=== PATIENT | male | born 1985 | race Caucasian/White ===

== ENCOUNTER 2019-04-26 12:57 | Observation (INO) ==
[2019-04-26] MEDS ORDERED: NITROGLYCERIN TOP ONE (13:24)
[2019-04-26 13:50] LABS: BASO# 0.02 X1000 (0.0-0.2); BASO% 0.2 % (0.0-0.8); EOS% 0.9 % (0.0-10.0); HEMATOCRIT 46.8 % (42.0-52.0); HEMOGLOBIN 16.6 g/dL (14.0-18.0); IMM GRAN# 0.03 X1000 (0.0-0.04); IMM GRAN% 0.3 % (0.0-0.5); LYMPH# 2.43 X1000 (1.2-3.4); LYMPH% 22.7 % (20.5-51.1); MCH 29.1 PG (27-31); MCHC 35.5 g/dL (33-37); MCV 82.1 FL (81-99); MONO% 5.6 % (1.7-9.3); MPV 9.5 FL (7.4-10.4); NEUT# 7.54 X1000 (1.4-6.5); NEUT% 70.3 % (42.2-75.2); PLT 282 X1000 (130-400); RDW 12.6 % (11.5-14.5); WBC 10.72 X1000 (4.8-10.8)
[2019-04-26 13:56] LABS: INR 1.02; PROTIME 13.5 Seconds (11.0-16.0)
[2019-04-26 13:57] LABS: PTT 30.7 Seconds (22.3-41.8)
[2019-04-26 14:13] LABS: AGAP 15; ALB/GLOB RATIO 2.3; ALBUMIN 4.5 g/dL (3.5-5.0); ALKALINE PHOSPHATASE 93 U/L (32-122); BUN 10 mg/dL (8-22); CALCIUM 9.1 mg/dL (8.8-10.2); CHLORIDE 100 mmol/L (98-107); CK PROFILE 80 U/L (24-204); COSMO 273; CREATININE 0.6 mg/dL (0.7-1.2); ESTIMATED GFR > 60; GLUCOSE 95 mg/dL (70-104); GOT 18 U/L (10-34); GPT 38 U/L (10-44); POTASSIUM 4.2 mmol/L (3.5-5.1); SODIUM 137 mmol/L (136-145); TCO2 22 mmol/L (25-35); TOTAL BILIRUBIN 0.31 mg/dL (0.20-1.00); TOTAL PROTEIN 6.5 g/dL (6.3-8.3)
--- NOTE | 2019-04-26 14:16 | Diag Imaging Result Doc PS360 ---
EXAM: CHEST-2 VIEWS INDICATION: chest pain TECHNIQUE: 2 views COMPARISON: None. FINDINGS: The lungs are grossly clear. There is no discrete pleural fluid collection or pneumothorax. The cardiomediastinal silhouette and central vasculature are grossly unremarkable. IMPRESSION: No evidence of acute pathology by plain radiograph. Electronically signed by Daniel Pulido 04/26/2019 2:02 PM
--- NOTE | 2019-04-26 15:27 | EKG Report ---
Test Performed on : 04/26/2019 1:01:26 PM Test Reason : ED. No order in [place] Blood Pressure : / mmHG Vent. Rate : 073 BPM Atrial Rate : 073 BPM P-R Int : 104 ms QRS Dur : 094 ms QT Int : 382 ms P-R-T Axes : 004 -09 087 degrees QTc Int : 420 ms Sinus rhythm. with short OR T wave abnormality, consider anterolateral ischemia Abnormal ECG No previous ECGs available Unconfirmed Result
[2019-04-26 16:59] LABS: FREE T4 1.1 ng/dL (0.93-1.70); TSH 0.37 uIUmL (0.27-4.20)
--- NOTE | 2019-04-26 17:01 | HISTORY AND PHYSICAL ---
HISTORY OF PRESENT ILLNESS: This is a 33-year-old. He actually works at [employer], but want to come here to the hospital. He said that it has been going on for a week and just off and on. It will start off with tingly pain on the left side, kind of go up into his shoulder and then he will feel this pressure and then he will hurt everywhere. He will hurt when he closes his eyes. He will hurt when he stands up. He just gets this all-over pain and nothing will relieve it. It is not related to exertion. He has no true radiation into his jaw. He does describe some paresthesias running down his left arm into his fingertips. No fever or chills. No pleuritic pain. He does admit that he has gone through a lot of stress. He is going through a divorce right now and he is very concerned about it. He has a history of anxiety and a history of panic attacks. He states, "I know what my panic attacks feel like and this is not a panic attack." The EKG is unremarkable except for nonspecific T-wave inversion in the lateral leads. He has really no history of coronary artery disease or heart disease. As I mentioned, he does have a history of anxiety and he is on medications. He is followed by primary care in [place]. ALLERGIES: Amoxicillin, tetracycline. REVIEW OF SYSTEMS: He does not report any change in his weight or true fever, chills. No report of change in vision or hearing acuity or neurologic focal deficits. Musculoskeletal: No complaints. GI and : Really no complaints. Endocrinologic and Hematologic: No significant history. PHYSICAL EXAMINATION: VITAL SIGNS: Temperature 97.7 degrees, pulse 65, respirations 14, blood pressure 110/74. EYES: Pupils are equal and round. LUNGS: Clear in all lung liang. CARDIOVASCULAR: Regular in rate without murmur or S3. ABDOMEN: Soft. SKIN: Warm and dry. WEIGHT: 150 pounds. LABORATORY DATA: White count 10,720, hematocrit 46, platelet count 282,000. Sodium 137, potassium 4.2, chloride 100, BUN 10, creatinine 0.6, glucose 95, calcium 9.1, albumin 4.5. PT is 13.5, PTT is 30. Chest x-ray, no evidence of acute pathology. ASSESSMENT AND PLAN: Very atypical chest pain. I think it is consistent with his anxiety. He is very frightened of something different. He is taking Adderall p.r.n. and he takes Vyvanse. I do not know if he is taking both of them together, but he has to amphetamines that he is taking. His family is concerned about him and would like him to get on Xanax. I do think it is reasonable for him to try some Ativan while he is here. I will give him 1 mg of Ativan p.o. q.4 hours p.r.n.. We will hold his Adderall and his Vyvanse as these can contribute to anxiety as well. We are going to check his T4, TSH, B12 and folate. We are going to check serial cardiac enzymes and EKG. We will put him on a regular diet. All of his labs reviewed. I do not see anything I am concerned about. I see no evidence of left ventricular dysfunction or valvular dysfunction, but I did explain to him until he is convinced it is not his heart, it is going to cause his anxiety to intensify. He was very uncomfortable with the thought of going home and so was his family. So, we will admit him, ask Cardiology to help with reinforcing his workup. cc: Tiburcio Riggs MD
[2019-04-26] MEDS ORDERED: ATIVAN PO PRN (17:14)
[2019-04-26] MEDS ORDERED: TYLENOL PO PRN (17:14)
[2019-04-26] MEDS ORDERED: NITROGLYCERIN SL PRN (17:14)
[2019-04-26] MEDS ORDERED: ZOFRAN IV PRN (17:14)
--- NOTE | 2019-04-26 18:24 | PROVIDER DOCUMENTATION ---
This chart was entered by Nancy Rose Scribe, acting as scribe for Jermaine Naranjo MD. HPI-Chest Pain - General Chief Complaint: Chest Pain Stated Complaint: cp Time Seen by Provider: 04/26/19 13:01 Source: patient, family (aunt and grandmother), EMS Allergies/Adverse Reactions: Patient Allergies Allergy/AdvReac Type Severity Reaction Status Date / Time amoxicillin AdvReac HIVES Verified 04/26/19 13:18 Tetracyclines AdvReac HIVES Verified 04/26/19 13:18 Home Medications: Home Medication List Medication Instructions Recorded Confirmed Last Taken Type Amphetamine Salts [Adderall] 20 mg PO PRN PRN 04/26/19 04/26/19 Unknown History Lisdexamfetamine Dimesylate 70 mg PO QAM 04/26/19 04/26/19 Unknown History [Vyvanse] - History of Present Illness-CP Nature of Presenting Problem: 33 yowm presents to the ed with c/o intermittent chest pain radiating into left arm for 2 weeks. pt sts he has been under much stress going through a custody murphy and divorce. pt sts [facility] called [facility] they bring him to [facility] er because pt is a [facility] and did not want them to see him on the stretcher. pt on exam is anxious and aunt and grandmother came in and au nt is stating "yall have to admit him because something is wrong, I would rather him be admitted then go home" pt on exam sts "all the pain is gone but this is what it does and it will come back" pt partner on the ambulance brought the pt to the er and the medic sts "en route the monitor showed rt ventricular conduction delay and once the pain returned it showed CO" after exam when dr naranjo was back at his desk the aunt came rushing to the dr and sts "come back he is in much distress" the nurse went to bedside and pt was having anxiety Location: reports: other (left anterior) Chest Pain Radiation: reports: arms (left arm) Quality of Pain: reports: pressure Severity in ED: moderate Onset/Duration: other (2 weeks) Timing: intermittent Context/Activities at Onset: reports: light activity Modifying Factors: improves with: nothing Associated Symptoms: denies: abdominal pain, back pain, nausea, shortness of breath, vomiting Nitro Today/Relief: no nitro taken today Aspirin Treatment Today: 325 mg x 1, provided by EMS Prior Chest Pain/Cardiac Workup: reports: no prior chest pain Similar Symptoms Previously?: No Recently Seen Here or By Another Healthcare Provider: No Review of Systems - Adult - REVIEW OF SYSTEMS - ADULT Constitutional: denies: chills, fever Eyes: reports: no symptoms reported Ears, Nose, Mouth & Throat: reports: no symptoms reported Cardiovascular: reports: see HPI, chest pain. denies: palpitations, syncope Respiratory: denies: shortness of breath, wheezing Gastrointestinal: denies: abdominal pain, diarrhea, nausea, vomiting Genitourinary: reports: no symptoms reported Musculoskeletal: reports: see HPI, other (left arm) Integumentary: reports: no symptoms reported Psychiatric: reports: see HPI, anxiety, panic attacks Endocrine: reports: no symptoms reported Hematologic/Lymphatic: reports: no symptoms reported Allergic/Immunologic: reports: no symptoms reported All Other Systems: Reviewed and Negative Past History - Adult - PAST MEDICAL HISTORY-ADULT Review of Records: reports: Old Records Reviewed, Nursing Assessment Review, Medications Reviewed, Social history reviewed & non-contributory. Major Childhood Illnesses: reports: denies history Cardiovascular: reports: hyperlipidemia Respiratory: reports: denies history Gastrointestinal: reports: GERD, pancreatitis Genitourinary: reports: denies history Musculoskeletal: reports: denies history Neurological: reports: denies history Psychiatric: reports: anxiety, other (panic attacks) Endocrine/Immune: reports: denies history Other Conditions: reports: denies history - PRIOR SURGERIES/PROCEDURES Surgical/Procedure History: reports: reviewed, not pertinent - IMMUNIZATION STATUS Childhood Immunizations: See Nurse Assessment Flu Vaccine: See Nurse Assessment - FAMILY HISTORY Family History: reviewed, not pertinent - SOCIAL HISTORY Smoking: cigarettes, less than 1 pack/day Provider spent 3-5 mins advising pt. on dangers of tobacco.: Discussed manners to quit use, and f/u contacts for add'l counseling. Substance Use: denies Alcohol Use Frequency: never Living Situation: family Physical Exam-General - PHYSICAL EXAM-ADULT Initial Vital Signs Reviewed: Yes - CONSTITUTIONAL General Appearance: appears well, alert, mild distress, anxious - EYES Eyes: PERRL/EOMI, pink conjunctivae - HEAD, EARS, NOSE, MOUTH & THROAT HENMT: moist mucous membranes - NECK Neck: non-tender, full range of motion, supple, normal inspection - RESPIRATORY Respiratory: chest non-tender, lungs clear, normal breath sounds - CARDIOVASCULAR Cardiovascular: normal peripheral pulses, regular rate, rhythm - CHEST (BREASTS) Chest/Breast: deferred - GASTROINTESTINAL (ABDOMEN) Abdominal Exam: normal bowel sounds, non tender, soft - GENITOURINARY Male Genitalia: deferred Rectal Exam: deferred Hemoccult Exam: deferred - LYMPHATIC Lymphatic: no adenopathy - MUSCULOSKELETAL Back Exam: normal inspection, no CVA tenderness, no vertebral tenderness Extremity: normal range of motion, non-tender, normal inspection - SKIN Integumentary: normal color, normal turgor, warm/dry - NEUROLOGIC Neurologic: grossly normal - PSYCHIATRIC Psych/Mental Status: normal mood/affect, normal thought content, normal thought process, oriented x 3, anxious - HEART Score HEART Score: History: Slightly Suspicious HEART Score: ECG: Normal HEART Score: Age: < or = 45 Years HEART Score: Risk Factors for Atherosclerotic Disease: > or = 3 Risk Factors or History of Atherosclerotic Disease HEART Score: Troponin: 1-3x Normal Limit Total HEART Score:: 3 Progress - PLAN OF CARE/RESULTS Progress/Plan/Lab Results: Vital Signs - 8 hr 04/26/19 13:01 04/26/19 13:04 04/26/19 13:05 Temperature 97.7 F Pulse Rate 81 Respiratory Rate 17 Blood Pressure 127/90 127/90 O2 Sat by Pulse Oximetry 97 99 04/26/19 13:15 04/26/19 13:30 04/26/19 13:31 Temperature Pulse Rate 70 65 Respiratory Rate 16 13 Blood Pressure 129/89 O2 Sat by Pulse Oximetry 100 100 100 04/26/19 13:47 04/26/19 14:00 04/26/19 14:01 Temperature Pulse Rate 70 74 Respiratory Rate 6 L 15 13 Blood Pressure 132/92 O2 Sat by Pulse Oximetry 100 100 04/26/19 14:15 04/26/19 14:30 04/26/19 14:31 Temperature Pulse Rate 83 65 71 Respiratory Rate 13 14 13 Blood Pressure 116/72 O2 Sat by Pulse Oximetry 99 99 99 04/26/19 14:45 04/26/19 15:00 04/26/19 15:15 Temperature Pulse Rate 65 82 62 Respiratory Rate 14 13 12 Blood Pressure 116/70 O2 Sat by Pulse Oximetry 99 99 98 04/26/19 15:30 04/26/19 15:45 04/26/19 16:00 Temperature Pulse Rate 63 63 65 Respiratory Rate 13 14 14 Blood Pressure 115/60 110/74 O2 Sat by Pulse Oximetry 98 97 98 Laboratory Results - last 24 hr 04/26/19 04/26/19 04/26/19 13:30 13:30 13:30 WBC 10.72 RBC 5.70 Hgb 16.6 Hct 46.8 MCV 82.1 MCH 29.1 MCHC 35.5 RDW Std Deviation 12.6 Plt Count 282 MPV 9.5 Immature Gran % (Auto) 0.3 Neut % (Auto) 70.3 Lymph % (Auto) 22.7 Barton % (Auto) 5.6 Eos % (Auto) 0.9 Baso % (Auto) 0.2 Immature Gran # (Auto) 0.03 Neut # (Auto) 7.54 H Lymph # (Auto) 2.43 Barton # (Auto) 0.60 H Eos # (Auto) 0.10 Baso # (Auto) 0.02 PT INR PTT (Actin FS) Sodium 137 Potassium 4.2 Chloride 100 Carbon Dioxide 22 L Anion Gap 15 BUN 10 Creatinine 0.6 L Estimated GFR/1.73 m2 > 60 BUN/Creatinine Ratio 17 Glucose 95 Calculated Osmolality 273 Calcium 9.1 Total Bilirubin 0.31 AST 18 ALT 38 Alkaline Phosphatase 93 Creatine Kinase 80 Troponin T Qmq-F-Ekmulmplury Pept 34 Total Protein 6.5 Albumin 4.5 Globulin 2.0 Albumin/Globulin Ratio 2.3 04/26/19 04/26/19 04/26/19 13:30 13:30 15:58 WBC RBC Hgb Hct MCV MCH MCHC RDW Std Deviation Plt Count MPV Immature Gran % (Auto) Neut % (Auto) Lymph % (Auto) Barton % (Auto) Eos % (Auto) Baso % (Auto) Immature Gran # (Auto) Neut # (Auto) Lymph # (Auto) Barton # (Auto) Eos # (Auto) Baso # (Auto) PT 13.5 INR 1.02 PTT (Actin FS) 30.7 Sodium Potassium Chloride Carbon Dioxide Anion Gap BUN Creatinine Estimated GFR/1.73 m2 BUN/Creatinine Ratio Glucose Calculated Osmolality Calcium Total Bilirubin AST ALT Alkaline Phosphatase Creatine Kinase 82 Troponin T 0.030 [id number] Pept Total Protein Albumin Globulin Albumin/Globulin Ratio Orders Category Date Time Status Cardiac Monitoring DIRECTED Care 04/26/19 13:18 Active Oxygen Therapy- ED Nursing DIRECTED Care 04/26/19 13:18 Active Saline Loc NOW Care 04/26/19 13:18 Active CHEST-2 VIEWS [RAD] Stat Exams 04/26/19 13:18 Completed CBC WITH ELECTRONIC DIFF [HEME] Stat Lab 04/26/19 13:30 Completed CK PROFILE [SP CHEM] Stat Lab 04/26/19 13:30 Completed CK PROFILE [SP CHEM] Stat Lab 04/26/19 15:58 Completed COMPREHENSIVE METABOLIC PANEL [CHEM] Stat Lab 04/26/19 13:30 Completed PRO B-NATRIURETIC PEPTIDE Stat Lab 04/26/19 13:30 Completed PROTIME WITH INR [COAG] Stat Lab 04/26/19 13:30 Completed PTT [COAG] Stat Lab 04/26/19 13:30 Completed TROPONIN T Stat Lab 04/26/19 13:30 Completed TROPONIN T Stat Lab 04/26/19 15:58 Received Nitroglycerin Med 04/26/19 13:24 Discontinued 0.5 inch TOP NOW ONE CP/SOB/Palp >45 yrs of Age Stat Oth 04/26/19 13:18 Ordered EKG [EKG] Stat Ther 04/26/19 13:01 Draft EKG [EKG] Stat Ther 04/26/19 15:50 Ordered Result Diagrams: 04/26/19 13:30 04/26/19 13:30 - REASSESSMENT Reassessment #1 Time Reassessed: 16:05 Status: unchanged (dr at bedside) - EKG 1 Time of EKG reading by physician:: 13:01 EKG Read and Signed by:: Jermaine Naranjo EKG Interpretation (*Must complete 3 of following elements*): Abnormal Rate: 73 Rhythm: sinus rhythm with short CT Elizabeth: normal QRS: normal CT Interval: normal ST Wave: normal Comments: T wave abnormality, consider anterolateral ischemia 2 Time of EKG reading by physician:: 16:02 EKG Read and Signed by:: Jermaine Naranjo EKG Interpretation (*Must complete 3 of following elements*): Abnormal Rate: 61 Rhythm: nsr QRS: RBB (incomplete) CT Interval: normal ST Wave: normal Comments: T wave abnormality, consider anterolateral ischemia - XRAY 1 XRAY: Bilateral XRAY Study: Chest Impression: See EMR Report (EXAM: CHEST-2 VIEWS INDICATION: chest pain TECHNIQUE: 2 views COMPARISON: None. FINDINGS: The lungs are grossly clear. There is no discrete pleural fluid collection or pneumothorax. The cardiomediastinal silhouette and central vasculature are grossly unremarkable. IMPRESSION: No evidence of acute pathology by plain radiograph. Electronically signed by Daniel Pulido 04/26/2019 2:02 PM 04/26/19 1402 Interpreting Physician: Daniel Pulido MD Dictated Date/Time: 04/26/19 1401 cc: Jermaine Naranjo MD; None,PCP) - CONSULTS/PCP/HOSPITALIST Notification #1 *Consult/PCP/Hospitalist*: hospitalist Time Discussed: 16:11 (spoke with bill and dr renteria and bill will see in the ed) Consult Disposition: Will see in ED, Admit Departure - Departure Date of Disposition Decision: 04/26/19 Time of Disposition Decision: 16:13 DIAGNOSIS: Nonspecific chest pain, Tobacco use disorder Disposition: ADMITTED INPATIENT 09 Certified Medical Emergency: Emergent Condition: Stable Referrals and Follow-Ups: None,PCP [Primary Care Provider] - - Critical Care Note This patient required my direct & personal management of CC.: No Attestation - Physician/ FAITH Attestation Patient care was provided by Advanced Practice Provider:: No The physician spent face to face time with patient:: Yes Advanced Practice Provider documentation review:: Supervising physician onsite and consulted in the evaluation and care of this patient. The physician did have a face to face encounter with the patient. This chart was documented by the indicated scribe, (Nancy Rose Scribe) and accurately reflects the services I performed and decisions made by me, Jermaine Naranjo MD, as attested by the provider's signature.
--- NOTE | 2019-04-26 18:53 | EKG Report ---
Test Performed on : 04/26/2019 4:02:43 PM Test Reason : CP Blood Pressure : / mmHG Vent. Rate : 061 BPM Atrial Rate : 061 BPM P-R Int : 140 ms QRS Dur : 098 ms QT Int : 390 ms P-R-T Axes : 018 -03 086 degrees QTc Int : 392 ms Normal sinus rhythm. Incomplete right bundle branch block T wave abnormality, consider anterolateral ischemia Abnormal ECG When compared with ECG of 26-APR-2019 13:01, (Unconfirmed) No significant change was found Unconfirmed Result
[2019-04-26] MEDS ORDERED: RESTORIL PO ONE (21:40)
[2019-04-26] MEDS: NICODERM PATCH TD SCH (22:27)
[2019-04-27 07:55] VITALS: BP 115/67
[2019-04-27] MEDS: NICODERM PATCH TD SCH (08:58)
--- NOTE | 2019-04-27 09:44 | DISCHARGE SUMMARY ---
ADMISSION DATE: 04/26/2019 DISCHARGE DATE: 04/27/2019 HOSPITAL COURSE: Mr. Wilkins had no further chest pain. He was anxious to go home. We had a long discussion that his bout with chest pain really is consistent with a panic attack. There were no features that were suggestive of angina. He is low in risk factors and his age make it unlikely, and he has been going significant through significant stress. So, we will let him go home. I suggest that maybe he start serotonin uptake inhibitor. Will try Celexa; put him on 20 mg Celexa daily. I will give him a few Ativan that he can use p.r.n. panic attack. I did give him a nicotine patch, enough for 14 days if he wants to try that. I want him to follow back with his primary care. We did discuss that Adderall and Vyvanse can often bring out panic attacks as well. So, I will leave that up to his discretion. cc: Tiburcio iRggs MD
== END 2019-04-27 11:00 | disposition home or self-care (01) ==
LOC: ED 12:57 → INTOOBSV 17:09 → EDIPHOLD 17:09 → 3N 20:36
PROVIDERS: ATTEND Emergency Medicine